=== PATIENT | female | born 2000 | race Hispanic/Latino ===

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

== ENCOUNTER 2024-07-09 00:19 | Emergency (ER) | payer BC, MEDICAID ==
[~2024-07-09] VITALS: Ht 167.6 cm; Wt 104.3 kg
[2024-07-09 00:22] VITALS: TEMP 98
[2024-07-09] MEDS: Solu-medROL 125MG VIAL IM ONE (00:43)
[2024-07-09] MEDS: EPINEPHrine PF 1MG (1:1,000) 1 MG/ML AMP IM ONE (00:54)
[2024-07-09 01:27] VITALS: PULSE 113; RESP 20
[2024-07-09] MEDS: IpraTROPium/alBUTERol SULFATE 3 ML SOLUTION IH ONE (01:27)
[2024-07-09] MEDS ORDERED: PRED50TA2 PO (01:28)
[2024-07-09] MEDS ORDERED: AUD IH (01:28)
--- NOTE | 2024-07-09 01:29 | ERN ---
ED Note History of Present Illness Stated Complaint: WHEEZING, COUGH, SHORTNESS OF BREATH Chief Complaint: Shortness of Breath Time Seen by MD: 00:26 Allergies: Coded Allergies: No Known Allergies (Unverified Allergy, Unknown, 10/11/20) Past Medical History Dictation 23-year-old female with past medical history of asthma presents via EMS with difficulty breathing. Patient states she has had a fever and upper respiratory type symptoms for several days and today started having difficulty breathing. Patient reports she is out of her inhaler. Patient denies productive cough, chest pain, abdominal pain nausea, vomiting diaphoresis, diarrhea Past Medical History: Anxiety, Asthma, Depression, Diabetes-Type II Surgical History: None Review of System Dictation See HPI Initial Vital Sign VS Vital Signs Date Time Temp Pulse Resp B/P (MAP) Pulse Ox O2 Delivery O2 Flow Rate FiO2 07/09/24 00:22 98.1 102 20 125/86 94 Room Air 0 07/09/24 00:40 21 Physical Exam Dictation Elevated BMI, uncomfortable appearing, tachypneic, bilateral expiratory wheezing, remains soft, nontender, non peritoneal regular rate rhythm ED Course ED Course Orders Procedure Category Date Status Time Ipratropium/Albuterol PHA 07/09/24 Complete Neb (Duoneb) 00:30 Methylprednisolone PHA 07/09/24 Complete Succ 125mg (Solu-Medr 00:30 Chest 1vw RAD 07/09/24 Taken 00:42 Epinephrine Pf 1mg PHA 07/09/24 Complete (1:1,000) (Adrenaline 01:00 Current Medications Medications (Trade) Dose Ordered Sig/Soheila Route PRN Reason Start Time Stop Time Status Last Admin Dose Admin Albuterol (DUOneb) 3 udvial ONCE ONCE IH 07/09/24 00:30 07/09/24 00:31 DC Epinephrine HCl (ADRENaline PF 1MG AMP) 0.5 mg ONCE ONCE IM 07/09/24 01:00 07/09/24 01:01 DC 07/09/24 00:54 Methylprednisolone Sodium Succinate (Solu-medROL 125MG) 125 mg ONCE ONCE IM 07/09/24 00:30 07/09/24 00:31 DC 07/09/24 00:43 Vital Signs Date Time Temp Pulse Resp B/P (MAP) Pulse Ox O2 Delivery O2 Flow Rate FiO2 07/09/24 00:40 130 22 115/88 96 Room Air* 0 21 07/09/24 00:22 98.1 102 20 125/86 94 Room Air 0 Medical Decision Making MDM ddx: Acute asthma exacerbation versus pneumonia versus flu versus COVID versus URI Patient's physical exam and history consistent with acute asthma exacerbation. A joint decision with the patient not to proceed with swabs. Patient has underlining URI. Patient is afebrile here. Chest x-ray shows no focal consolidations. Low clinical suspicion for pneumonia. Patient given multiple rounds of DuoNebs, IV steroids, IM epinephrine. Upon re-evaluation, patient's symptoms resolve. Discussed ED workup with the patient. Patient reports she is back at her baseline. Recommend close primary care follow up. Invited and answered all questions prior to discharge. We will provide albuterol and steroids DX & DISP Disposition: Discharge Departure Impression: Primary Impression: Acute asthma exacerbation Condition: Stable Scripts Prednisone (Prednisone) 50 Mg Tablet 50 MG PO DAILY for 60 Days, #5 TAB 0 Refills Prov: DARSHANA BARRERA DO 07/09/24 Albuterol Sulfate (Albuterol Sulfate) 2.5 Mg/0.5 Ml Vial.neb 2.5 MG IH Q6H for wheezing/sob, #20 INH 0 Refills Prov: DARSHANA BARRERA DO 07/09/24 Additional Instructions: Please return to the emergency department immediately if you have difficulty breathing, or symptoms occur or if you develop productive cough. Please follow up with primary care physician next available appointment. Please take albuterol inhaler for the next several days regular whether or not you need it. Referrals: LITA MCARTHUR MD (PCP) Time of Disposition: 01:28 DARSHANA BARRERA DO Jul 09, 2024 01:29
[2024-07-09 02:53] VITALS: BP 135/82; PULSE 112; RESP 15; O2SAT 96
--- NOTE | 2024-07-09 08:51 | HMCIMG ---
Exam Type: CHEST 1VW Clinical Information: cp Comparison: None Findings: The lungs are clear of infiltrates. The heart is normal in size. The bony and soft tissue structures of the chest are unremarkable. Impression: Clear lungs.
== END 2024-07-09 03:04 | disposition home or self-care (01) ==
LOC: EDH 00:19
DX: J45.901 Unspecified asthma with (acute) exacerbation (principal); E11.9 Type 2 diabetes mellitus without complications
CPT/HCPCS: 99284; 71045; 96372 ×2; 94640; J2919; J0171